=== PATIENT | male | born 1995 | race Caucasian/White ===

== ENCOUNTER 2017-05-02 20:57 | Emergency (ER) | payer BC, OTHER ==
[~2017-05-02] VITALS: Ht 182.9 cm; Wt 83.9 kg
[~2017-05-02 20:57] MED LIST: ACHD5005 PO; SULF1TAB35 PO
--- OUTSIDE RECORDS SUMMARY | 2017-05-02 21:03 | XMS REPORT | Continuity of Care Document ---
Author Author [facility] Organization [facility] Address Unknown Phone Unavailable Allergies Active Description Code Type Severity Reaction Onset Reported/Identified Relationship to Patient Clinical Status Yes Penicillins [id number] Drug Allergy Unknown N/A 12/16/2014 Medications Problems Date Dx Coded Attending Type Code Diagnosis Diagnosed By 12/17/2014 MARGARITO GARCIA, MARLI Enriquez Ot 550.92 12/17/2014 MARGARITO GARCIA, MARLI Enriquez Ot V72.84 12/18/2014 MARLI PIMENTEL MD Ot 550.92 BILAT INGUINAL HERNIA 12/18/2014 MARGARITO GARCIA, MARLI Enriquez Ot V74.8 SCREEN-BACTERIAL DIS NEC 05/28/2016 JANETT MORALES DO Ot L03.311 CELLULITIS OF ABDOMINAL WALL 05/30/2016 JANETT MORALES DO Ot L03.311 CELLULITIS OF ABDOMINAL WALL Procedures Results Encounters ACCT No. Visit Date/Time Discharge Status Pt. Type Provider Facility Loc./Unit Complaint [id number] 05/28/2016 23:16:00 2015 23:55:00 DIS Emergency JANETT MORALES DO [facility] ER RED BUMP ON SIDE [id number] 12/18/2014 08:27:00 2014 16:00:00 DIS Outpatient MARLI PIMENTEL MD [facility] INGUINAL HERNIA [id number] 12/15/2014 05:52:00 2014 23:59:59 CLS Outpatient MARLI PIMENTEL MD [facility] PREOP
[2017-05-02] MEDS ORDERED: ONDANSETRON 4 MG (ZOFRAN) ORAL DISSOLVE TAB PO ONE (21:15)
[2017-05-02] MEDS ORDERED: METHYLPREDNISOLONE (21:15)
[2017-05-02] MEDS ORDERED: ACETAMINOPHEN 500 MG TAB (TYLENOL) PO ONE (21:15)
--- NOTE | 2017-05-02 21:15 | ED Head Injury ---
General Chief Complaint: Head/Cervical Problems Stated Complaint: CONCUSSION Source: patient Exam Limitations: no limitations History of Present Illness Time seen by provider: 20:59 Initial Comments Brought to ER by his brother with reports of a possible concussion. Starting about 3-3-1/2 hours ago the patient was struck in the head while wearing a helmet during football practice for [employer]. He had no loss of consciousness but he does not recall all of the events. He reports that he does have dizziness, headache, nausea and "I feel out of it". His brother who is with him states that he's had about 8 questions over the past 3 hours and he keeps asking them repeatedly. Occurred: this evening Severity: moderate Method of Injury: unknown Loss of Consciousness: no loss of consciousness Associated Systoms: Headaches, Nausea/Vomiting Allergies and Home Medications Allergies Coded Allergies: Penicillins (Unverified Allergy, Unknown, 12/16/14) Home Medications [Methylprednisolone] , (Reported) Constitutional: see HPI Eyes: No Symptoms Reported Ears, Nose, Mouth, Throat: no symptoms reported Respiratory: no symptoms reported Cardiovascular: no symptoms reported Genitourinary: no symptoms reported Musculoskeletal: no symptoms reported Skin: see HPI Psychiatric/Neurological: No Symptoms Reported, Headache Endocrine: No Symptoms Reported Hematologic/Lymphatic: No Symptoms Reported Past Lqkigkx-Kumgvx-Wmupin Hx Patient Social History Recent Foreign Travel: No Contact w/Someone Who Travel: No Recent Hopitalizations: No Surgeries Surgeries: Orthopedic Reproductive System Hx Reproductive Disorders: No Sexually Transmitted Disease: No HIV/AIDS: No Physical Exam Vital Signs Vital Sign - Last 12Hours 05/02/17 21:04 Temp 97.6 Pulse 66 Resp 20 B/P (MAP) 150/64 Pulse Ox 96 O2 Delivery Room Air Capillary Refill : General Appearance: WD/WN, no apparent distress HEENT: PERRL/EOMI, normal ENT inspection Neck: non-tender, full range of motion Cardiovascular: regular rate, rhythm, no murmur Respiratory: no respiratory distress, no accessory muscle use Gastrointestinal: non tender, soft Extremities: normal range of motion, non-tender Psychiatric: alert, oriented x 3 Crainal Nerves: normal hearing, normal speech, PERRL Roland Coma Score Best Eye Response: (4) Open Spontaneously Best Verbal Response: (5) Oriented Best Motor Response: (6) Obeys Commands [place] Total: 15 Progress/Results/Core Measures Results/Orders My Orders Orders - GALINA ZAIDI APRN Ondansetron Oral Dissolve Tab (Zofran (05/02/17 21:15) Acetaminophen Tablet (Tylenol Tablet) (05/02/17 21:15) Ct Head Wo (05/02/17 21:18) Rx-Ondansetron Po (Rx-Zofran Po) (05/02/17 21:54) Medications Given in ED Current Medications Medications Dose Ordered Sig/Loretta Route Start Time Stop Time Status Last Admin Dose Admin Acetaminophen 1,000 mg ONCE ONCE PO 05/02/17 21:15 05/02/17 21:16 DC 05/02/17 21:24 1,000 MG Ondansetron HCl 4 mg ONCE ONCE PO 05/02/17 21:15 05/02/17 21:16 DC 05/02/17 21:24 4 MG Vital Signs/I&O Vital Sign - Last 12Hours 05/02/17 05/02/17 21:04 21:24 Temp 97.6 97.6 Pulse 66 Resp 20 B/P (MAP) 150/64 Pulse Ox 96 O2 Delivery Room Air Departure Communication (Admissions) Progress Notes 2200--He is being taken home by his brother. I have gone over all of the discharge instructions with his brother. I've also gone over these discharge instructions with Joe several times as he still has some repetitive questioning asking and short-term memory loss. They are familiar with a graduated return to play guidelines as they are planning for [employer]. Brother ensures me that the athletic trainers will follow these guidelines to return him to the emergency room for any concerns. Impression Impression: Primary Impression: Concussion without loss of consciousness Disposition: 01 HOME, SELF-CARE Condition: Stable Departure-Patient Inst. Decision time for Depature: 21:51 Referrals: ANGELICA GARCIA MD (PCP) Primary Care Physician COURTNEY HANNA (Family) Primary Care Physician Patient Instructions: Concussion, Adult (DC) Add. Discharge Instructions: 1. Tylenol and motrin for headaches and nausea medication as directed. Once you have not had to take any of this for 48 hours, then you may begin the graduated return to play 2. 3. All discharge instructions reviewed with patient and/or family. Voiced understanding. Work/School Note: Work Release Form Date Seen in the Emergency Department: May 02, 2017 Return to Work: May 05, 2017 GALINA ZAIDI APRN May 02, 2017 21:15
--- NOTE | 2017-05-02 21:48 | Diagnostic Imaging Report ---
PROCEDURE: CT head without contrast. TECHNIQUE: Multiple contiguous axial images were obtained through the brain without the use of intravenous contrast. INDICATION: Patient was hit in the head at football practice, does not remember the event. COMPARISON STUDIES: None FINDINGS: Noncontrast CT scanning of the head demonstrates no mass effect, midline shift, hemorrhage or extra-axial fluid collections. The diaz-white matter differentiation is normal. The ventricles, cortical sulci, and basilar cisterns appear normal. Mastoid air cells are clear. A mucous retention cyst and air-fluid levels are present in the left maxillary sinus. No fractures are present. IMPRESSION: 1. Normal intracranial findings. 2. Left maxillary sinusitis. Dictated by: Dictated on workstation # [id number]
[2017-05-02] MEDS ORDERED: RX-ONDANSETRON 4 MG ODT (ZOFRAN) PPK #4 PO STA (21:54)
[2017-05-02 22:07] VITALS: BP 139/72
== END 2017-05-02 22:07 | disposition home or self-care (01) ==
LOC: EDUNIT# 20:57 → ER 20:59
DX: S06.0X0A Concussion without loss of consciousness, initial encounter (principal); W22.8XXA Striking against or struck by other objects, initial encounter; Y93.61 Activity, american tackle football; Y92.214 College as the place of occurrence of the external cause
CPT/HCPCS: 70450; 99283